=== PATIENT | male | born 1970 | race Caucasian/White ===

== ENCOUNTER 2016-12-06 14:46 | Emergency (ER) | payer OTHER ==
[2016-12-06 14:50] VITALS: PULSE 64; RESP 18; TEMP 98.6
[2016-12-06] MEDS ORDERED: KETOROLAC TROMETHAMINE 30 MG/ML SOL IM ONE (15:22)
[2016-12-06] MEDS ORDERED: CYCLOBENZAPRINE 10 MG TAB PO ONE (15:22)
[2016-12-06] MEDS ORDERED: APAP/OXYCODONE 325/5 TAB PO ONE (15:22)
[2016-12-06] MEDS ORDERED: APAP/OXYCODONE 325/5 TAB ONE (15:25)
[2016-12-06] MEDS ORDERED: CYCLOBENZAPRINE 10 MG TAB ONE (15:25)
[2016-12-06] MEDS ORDERED: KETOROLAC TROMETHAMINE 30 MG/ML SOL ONE (15:25)
[2016-12-06 16:10] VITALS: BP 113/90; O2SAT 93
== END 2016-12-06 16:25 | disposition home or self-care (01) ==
LOC: ED 14:46
DX: M54.9 Dorsalgia, unspecified (principal); M48.00 Spinal stenosis, site unspecified
CPT/HCPCS: 99283 ×2; J1885; 96372

== ENCOUNTER 2017-06-22 20:31 | Emergency (ER) | payer OTHER ==
[2017-06-22 20:49] VITALS: RESP 22
[2017-06-22 21:33] VITALS: BP 145/96; PULSE 74; TEMP 98; O2SAT 98
== END 2017-06-22 21:32 | disposition home or self-care (01) | DRG 605 ==
LOC: ED 20:31
DX: S60.032A Contusion of left middle finger without damage to nail, initial encounter (principal); W31.89XA Contact with other specified machinery, initial encounter
CPT/HCPCS: 73140; 99282

== ENCOUNTER 2018-05-05 19:52 | Emergency (ER) | payer OTHER ==
[2018-05-05] MEDS ORDERED: HYDROMORPHONE HYDROCHLORIDE 2 MG TAB PO ONE ×2 (20:32→20:35)
[2018-05-05] MEDS ORDERED: CYCLOBENZAPRINE 10 MG TAB PO ONE (22:05)
[2018-05-05] MEDS ORDERED: HYDROMORPHONE HCL 2 MG/ML SOL IM ONE (22:05)
[2018-05-05] MEDS ORDERED: HYDROMORPHONE 1 MG/ML SYRINGE ONE (22:06)
[2018-05-05] MEDS ORDERED: CYCLOBENZAPRINE 10 MG TAB ONE (22:06)
[2018-05-05 22:36] VITALS: TEMP 98.4
[2018-05-05 22:46] VITALS: RESP 20
[2018-05-05 22:52] VITALS: O2SAT 99
[2018-05-05 22:53] VITALS: BP 152/102; PULSE 62
== END 2018-05-05 23:02 | disposition home or self-care (01) ==
LOC: ED 19:52
DX: G89.29 Other chronic pain (principal); M54.5 Low back pain; E11.40 Type 2 diabetes mellitus with diabetic neuropathy, unspecified; Z79.4 Long term (current) use of insulin; Z79.84 Long term (current) use of oral hypoglycemic drugs
CPT/HCPCS: 94762; 96372; 99284; A9270-GY; J1170

== ENCOUNTER 2018-06-21 20:00 | Emergency (ER) | payer OTHER ==
[2018-06-21] MEDS ORDERED: ASPIRIN 81 MG CHEWABLE CTB PO STA (20:14)
[2018-06-21] MEDS ORDERED: NITROGLYCERIN 0.4 MG TAB SL PRN (20:14)
[2018-06-21] MEDS ORDERED: ONDANSETRON HCL 4 MG/2 ML SOL IV ONE (20:15)
[2018-06-21 20:20] LABS: BASOPHILS % (AUTO) 1 % (0-3); EOSINOPHILS % (AUTO) 3 % (0-9); HEMATOCRIT 45 % (39-53); HEMOGLOBIN 14.7 gm/dl (13.5-17.7); LYMPHOCYTES % (AUTO) 31.9 % (10-50); MEAN CORPUSCULAR HEMOGLOBIN 27.9 pg (27.0-32.0); MEAN CORPUSCULAR HGB CONC 32.6 gm/dl (32.0-36.0); MEAN CORPUSCULAR VOLUME 86 fL (80-100); MONOCYTES % (AUTO) 8.2 % (0-12); NEUTROPHILS % (AUTO) 56.4 % (37-80)
[2018-06-21 20:22] VITALS: TEMP 98.5
[2018-06-21] MEDS ORDERED: ASPIRIN 81 MG CHEWABLE CTB ONE (20:26)
[2018-06-21] MEDS: SODIUM CHLORIDE 0.9% FLUSH 10 ML SOL IV PRN ×2 (20:27→20:33)
[2018-06-21] MEDS ORDERED: ONDANSETRON HCL 4 MG/2 ML SOL ONE (20:28)
[2018-06-21 20:31] LABS: BLOOD UREA NITROGEN 15 mg/dl (7-18); CALCIUM 8.4 mg/dl (8.5-10.1); CARBON DIOXIDE 28.8 mEq/L (21-32); CHLORIDE 97 mMol/L (98-107); CREATINE KINASE 170 U/L (39-308); CREATININE 1.01 mg/dl (0.80-1.30); GLUCOSE 132 mg/dl (74-106); INR 0.98 (0.86-1.12); POTASSIUM 3.6 mMol/L (3.5-5.1); SODIUM 135 mMol/L (136-145); TROP I < 0.017 ng/ml (0.000-0.056)
[2018-06-21 20:35] VITALS: RESP 16
[2018-06-21 22:09] VITALS: BP 153/100; PULSE 59; O2SAT 95
== END 2018-06-21 22:23 | disposition home or self-care (01) ==
LOC: ED 20:00 → SUPCPDRO 20:00 → ED 22:23
DX: R11.0 Nausea (principal)
CPT/HCPCS: 36415; 71045; 80048; 82550; 84484; 85025; 85610; 85730; 93005; 96374; 99284; 99285; J2405

== ENCOUNTER 2018-08-02 20:10 | Emergency (ER) | payer OTHER ==
[2018-08-02] MEDS: SODIUM CHLORIDE 0.9% FLUSH 10 ML SOL IV PRN ×2 (20:15→20:39)
[2018-08-02 20:28] LABS: BASOPHILS % (AUTO) 1 % (0-3); EOSINOPHILS % (AUTO) 2 % (0-9); HEMATOCRIT 42 % (39-53); HEMOGLOBIN 13.9 gm/dl (13.5-17.7); LYMPHOCYTES % (AUTO) 25.8 % (10-50); MEAN CORPUSCULAR HEMOGLOBIN 28.8 pg (27.0-32.0); MEAN CORPUSCULAR HGB CONC 33.4 gm/dl (32.0-36.0); MEAN CORPUSCULAR VOLUME 86 fL (80-100); MONOCYTES % (AUTO) 8.3 % (0-12); NEUTROPHILS % (AUTO) 62.9 % (37-80)
[2018-08-02] MEDS ORDERED: NITROGLYCERIN 0.4 MG TAB SL ONE (20:29)
[2018-08-02] MEDS ORDERED: MORPHINE SULFATE 10 MG/ML SOL ONE (20:29)
[2018-08-02] MEDS ORDERED: MORPHINE SULFATE 10 MG/ML SOL IV ONE (20:34)
[2018-08-02] MEDS ORDERED: ONDANSETRON HCL 4 MG/2 ML SOL ONE (20:36)
[2018-08-02] MEDS ORDERED: ONDANSETRON HCL 4 MG/2 ML SOL IV ONE (20:37)
[2018-08-02] MEDS ORDERED: NITROGLYCERIN 0.4 MG TAB SL PRN (20:39)
[2018-08-02 20:45] LABS: BLOOD UREA NITROGEN 15 mg/dl (7-18); CALCIUM 8.5 mg/dl (8.5-10.1); CARBON DIOXIDE 22.5 mEq/L (21-32); CHLORIDE 101 mMol/L (98-107); CREATINE KINASE 139 U/L (39-308); CREATININE 0.91 mg/dl (0.80-1.30); GLUCOSE 164 mg/dl (74-106); POTASSIUM 3.8 mMol/L (3.5-5.1); SODIUM 137 mMol/L (136-145); TROP I < 0.017 ng/ml (0.000-0.056)
[2018-08-02] MEDS ORDERED: SODIUM CHLORIDE 0.9% 1000ML 1,000 ML IV ONE (20:45)
[2018-08-03 01:32] VITALS: RESP 18
[2018-08-03 03:55] VITALS: BP 165/95; PULSE 62; TEMP 98.2; O2SAT 99
== END 2018-08-03 03:25 | disposition home or self-care (01) ==
LOC: ED 20:10
DX: I20.0 Unstable angina (principal); I10 Essential (primary) hypertension; F17.200 Nicotine dependence, unspecified, uncomplicated; M54.5 Low back pain; E11.8 Type 2 diabetes mellitus with unspecified complications; Z79.4 Long term (current) use of insulin
CPT/HCPCS: 36415; 71045; 80048; 82550; 82962; 83880; 84484; 85025; 85610; 85730; 93005; 96365; 96366; 96374; 96375; 99284; 99285; J2270; J2405; A9270-GY

== ENCOUNTER 2018-08-06 08:32 | Day surgery (SDC) | payer OTHER ==
[2018-08-06] MEDS ORDERED: BUPIVACAINE HCL 0.25% MPF 30 ML SOL INFIL ONE (09:20)
[2018-08-06] MEDS: DEXAMETHASONE SOD PHOS PF 10 MG/ML SOL IJ ONE ×3 (09:27→09:35)
[2018-08-06 09:51] VITALS: PULSE 60; RESP 20; TEMP 99.1; O2SAT 95
[2018-08-06 09:53] VITALS: BP 157/98
== END 2018-08-06 10:14 | disposition home or self-care (01) ==
LOC: SURG 08:32
PROVIDERS: ATTEND Nurse Anesthetist, Certified Registered
DX: M51.17 Intervertebral disc disorders with radiculopathy, lumbosacral region (principal); E11.9 Type 2 diabetes mellitus without complications
CPT/HCPCS: 82962; J1100

== ENCOUNTER 2018-08-12 18:26 | Emergency (ER) | payer OTHER ==
[2018-08-12] MEDS ORDERED: ASPIRIN 81 MG CHEWABLE CTB PO ONE (18:53)
[2018-08-12 19:04] LABS: BASOPHILS % (AUTO) 1 % (0-3); EOSINOPHILS % (AUTO) 2 % (0-9); HEMATOCRIT 42 % (39-53); HEMOGLOBIN 13.6 gm/dl (13.5-17.7); LYMPHOCYTES % (AUTO) 29.1 % (10-50); MEAN CORPUSCULAR HEMOGLOBIN 28.1 pg (27.0-32.0); MEAN CORPUSCULAR HGB CONC 32.1 gm/dl (32.0-36.0); MEAN CORPUSCULAR VOLUME 88 fL (80-100)
[2018-08-12] MEDS ORDERED: ASPIRIN 81 MG CHEWABLE CTB ONE (19:07)
[2018-08-12] MEDS ORDERED: NITROGLYCERIN 0.4 MG TAB SL ONE (19:07)
[2018-08-12] MEDS ORDERED: NITROGLYCERIN 0.4 MG TAB SL PRN (19:10)
[2018-08-12 19:19] VITALS: RESP 20
[2018-08-12 19:23] LABS: CALCIUM 8.6 mg/dl (8.5-10.1); CARBON DIOXIDE 29.7 mEq/L (21-32); CHLORIDE 99 mMol/L (98-107); CREATININE 0.95 mg/dl (0.80-1.30); GLUCOSE 117 mg/dl (74-106); POTASSIUM 3.9 mMol/L (3.5-5.1); SODIUM 136 mMol/L (136-145); TROP I < 0.017 ng/ml (0.000-0.056)
[2018-08-12 20:03] LABS: BLOOD UREA NITROGEN 13 mg/dl (7-18)
[2018-08-12 20:20] VITALS: BP 144/86; PULSE 67; TEMP 97.4; O2SAT 99
== END 2018-08-12 20:20 | disposition home or self-care (01) ==
LOC: ED 18:26
DX: R07.9 Chest pain, unspecified (principal)
CPT/HCPCS: 80048; 84484; 85025; 93005; 99283; 99284; A6232; A9270-GY

== ENCOUNTER 2018-08-22 20:17 | Emergency (ER) | payer OTHER ==
[2018-08-22 21:04] LABS: ALBUMIN 3.3 gm/dl (3.4-5.0); ALKALINE PHOSPHATASE 77 IU/L (46-116); ALT 22 IU/L (14-63); AST 14 IU/L (15-37); BILIRUBIN,TOTAL 0.3 mg/dl (0.2-1.0); BLOOD UREA NITROGEN 18 mg/dl (7-18); CALCIUM 8.6 mg/dl (8.5-10.1); CARBON DIOXIDE 25.9 mEq/L (21-32); CHLORIDE 101 mMol/L (98-107); CREATININE 0.91 mg/dl (0.80-1.30); GLUCOSE 101 mg/dl (74-106); POTASSIUM 3.7 mMol/L (3.5-5.1); SODIUM 137 mMol/L (136-145); TROP I < 0.017 ng/ml (0.000-0.056)
[2018-08-22 21:43] VITALS: TEMP 97.9
[2018-08-22 21:52] VITALS: BP 139/94; PULSE 60; RESP 15; O2SAT 99
== END 2018-08-22 22:36 | disposition short-term general hospital (02) ==
LOC: ED 20:17
DX: I20.0 Unstable angina (principal)
CPT/HCPCS: 80053; 83880; 84484; 85378; 93005; 99285; 99291

== ENCOUNTER 2018-09-26 09:16 | Day surgery (SDC) | payer OTHER ==
[2018-09-26] MEDS ORDERED: BUPIVACAINE HCL 0.25% MPF 30 ML SOL INFIL ONE (10:07)
[2018-09-26] MEDS: DEXAMETHASONE SOD PHOS PF 10 MG/ML SOL IJ ONE ×4 (10:12→10:30)
[2018-09-26 10:41] VITALS: PULSE 59; RESP 12; TEMP 98.3; O2SAT 95
[2018-09-26 10:48] VITALS: BP 140/91
== END 2018-09-26 11:30 | disposition home or self-care (01) ==
LOC: SURG 09:16
PROVIDERS: ATTEND Nurse Anesthetist, Certified Registered
DX: E11.9 Type 2 diabetes mellitus without complications (principal); M51.17 Intervertebral disc disorders with radiculopathy, lumbosacral region
CPT/HCPCS: J1100

== ENCOUNTER 2018-11-17 20:32 | Emergency (ER) | payer BC ==
[2018-11-17 21:01] VITALS: TEMP 96.5; O2SAT 96
[2018-11-17] MEDS ORDERED: APAP/HYDROCODONE 1 EACH TABLET PO ONE (21:33)
[2018-11-17] MEDS ORDERED: APAP/HYDROCODONE 1 EACH TABLET ONE (21:43)
[2018-11-17 21:54] VITALS: BP 160/100; PULSE 65; RESP 18
== END 2018-11-17 21:52 | disposition home or self-care (01) ==
LOC: ED 20:32
DX: M54.5 Low back pain (principal); R53.1 Weakness; M79.605 Pain in left leg; M79.604 Pain in right leg
CPT/HCPCS: 99282; A9270-GY

== ENCOUNTER 2019-01-23 16:36 | Emergency (ER) | payer BC ==
[2019-01-23] MEDS: TETRACAINE HCL 0.5 % 1 DROP SOL RIGHTEYE ONE (17:00)
[2019-01-23] MEDS ORDERED: TETRACAINE HCL 0.5 % 1 DROP SOL ONE (17:03)
[2019-01-23 17:32] VITALS: PULSE 62; RESP 18; TEMP 96.9
[2019-01-23 17:48] VITALS: BP 120/89; O2SAT 99
== END 2019-01-23 17:45 | disposition home or self-care (01) ==
LOC: ED 16:36
DX: S05.01XA Injury of conjunctiva and corneal abrasion without foreign body, right eye, initial encounter (principal)
CPT/HCPCS: 99282; A9270-GY

== ENCOUNTER 2019-03-12 12:30 | Day surgery (SDC) | payer BC ==
[2019-03-12 13:03] VITALS: RESP 16
[2019-03-12] MEDS ORDERED: BUPIVACAINE HCL 0.25% MPF 30 ML SOL INFIL ONE (13:23)
[2019-03-12] MEDS: DEXAMETHASONE SOD PHOS PF 10 MG/ML SOL IJ ONE ×2 (13:33→13:36)
[2019-03-12 13:50] VITALS: BP 139/80; PULSE 58; TEMP 98.1; O2SAT 93
== END 2019-03-12 14:05 | disposition home or self-care (01) ==
LOC: SURG 12:30
PROVIDERS: ATTEND Nurse Anesthetist, Certified Registered
DX: M99.53 Intervertebral disc stenosis of neural canal of lumbar region (principal); E11.9 Type 2 diabetes mellitus without complications
CPT/HCPCS: 82962; J1100

== ENCOUNTER 2019-03-21 18:01 | Emergency (ER) | payer BC ==
[2019-03-21 18:25] LABS: BASOPHILS % (AUTO) 1 % (0-3); EOSINOPHILS % (AUTO) 1 % (0-9); HEMATOCRIT 42 % (39-53); HEMOGLOBIN 14.4 gm/dl (13.5-17.7); INR 1.05 (0.86-1.12); LYMPHOCYTES % (AUTO) 16.3 % (10-50); MEAN CORPUSCULAR HEMOGLOBIN 28.7 pg (27.0-32.0); MEAN CORPUSCULAR VOLUME 85 fL (80-100); MONOCYTES % (AUTO) 8.3 % (0-12); NEUTROPHILS % (AUTO) 73.4 % (37-80)
[2019-03-21 18:30] LABS: BLOOD UREA NITROGEN 18 mg/dl (7-18); CALCIUM 8.4 mg/dl (8.5-10.1); CHLORIDE 97 mMol/L (98-107); CREATININE 1.23 mg/dl (0.80-1.30); GLUCOSE 241 mg/dl (74-106); POTASSIUM 3.7 mMol/L (3.5-5.1); TROP I < 0.017 ng/ml (0.000-0.056)
[2019-03-21 18:35] LABS: CARBON DIOXIDE 26.4 mEq/L (21-32)
[2019-03-21 18:36] LABS: SODIUM 133 mMol/L (136-145)
[2019-03-21 18:58] VITALS: TEMP 98
[2019-03-21 19:22] VITALS: O2SAT 96
[2019-03-21 22:45] VITALS: BP 101/63; PULSE 60; RESP 19
== END 2019-03-21 23:08 | disposition home or self-care (01) ==
LOC: SUPCPDRO 18:01 → ED 18:01
DX: R07.9 Chest pain, unspecified (principal); E11.9 Type 2 diabetes mellitus without complications; R42 Dizziness and giddiness; M25.512 Pain in left shoulder
CPT/HCPCS: 36415; 71045; 80048; 82962; 84484; 85025; 85610; 85730; 93005; 99285; 99291

== ENCOUNTER 2019-04-04 17:12 | Emergency (ER) | payer BC, OTHER ==
[2019-04-04] MEDS ORDERED: ASPIRIN 81 MG CHEWABLE CTB ONE (17:16)
[2019-04-04] MEDS ORDERED: NITROGLYCERIN 0.4 MG TAB SL ONE (17:16)
[2019-04-04] MEDS ORDERED: ASPIRIN 81 MG CHEWABLE CTB PO ONE (17:36)
[2019-04-04 17:43] LABS: BASOPHILS % (AUTO) 1 % (0-3); EOSINOPHILS % (AUTO) 2 % (0-9); HEMATOCRIT 44 % (39-53); HEMOGLOBIN 14.4 gm/dl (13.5-17.7); LYMPHOCYTES % (AUTO) 27.8 % (10-50); MEAN CORPUSCULAR HEMOGLOBIN 28.2 pg (27.0-32.0); MEAN CORPUSCULAR HGB CONC 32.8 gm/dl (32.0-36.0); MEAN CORPUSCULAR VOLUME 86 fL (80-100)
[2019-04-04] MEDS ORDERED: SODIUM CHLORIDE 0.9% 1000ML 1,000 ML IV SCH (17:45)
[2019-04-04] MEDS: NITROGLYCERIN 0.4 MG TAB SL PRN ×2 (17:49→18:12)
[2019-04-04 17:55] VITALS: TEMP 97.5
[2019-04-04 17:57] LABS: ALBUMIN 3.5 gm/dl (3.4-5.0); ALKALINE PHOSPHATASE 77 IU/L (46-116); ALT 24 IU/L (14-63); AST 9 IU/L (15-37); BILIRUBIN,TOTAL 0.3 mg/dl (0.2-1.0); BLOOD UREA NITROGEN 19 mg/dl (7-18); CALCIUM 8.7 mg/dl (8.5-10.1); CARBON DIOXIDE 27.2 mEq/L (21-32); CHLORIDE 100 mMol/L (98-107); CREATININE 1.06 mg/dl (0.80-1.30); GLUCOSE 134 mg/dl (74-106); POTASSIUM 3.5 mMol/L (3.5-5.1); SODIUM 135 mMol/L (136-145); TOTAL PROTEIN 7.2 gm/dl (6.4-8.2); TROP I < 0.017 ng/ml (0.000-0.056)
[2019-04-04] MEDS ORDERED: SODIUM CHLORIDE 0.9% FLUSH 10 ML SOL IV PRN (18:07)
[2019-04-04 22:27] VITALS: BP 151/95; PULSE 70; RESP 23; O2SAT 96
== END 2019-04-04 22:04 | disposition short-term general hospital (02) ==
LOC: ED 17:12
DX: R79.1 Abnormal coagulation profile (principal); R07.9 Chest pain, unspecified; R91.1 Solitary pulmonary nodule; E11.9 Type 2 diabetes mellitus without complications; R42 Dizziness and giddiness; R61 Generalized hyperhidrosis
CPT/HCPCS: 36415; 71045; 71275; 80053; 84484; 85025; 85378; 85610; 85730; 93005; 96365; 96366; 99285; 99291; 99292; Q9967; A9270-GY

== ENCOUNTER 2019-04-10 21:47 | Emergency (ER) | payer OTHER ==
[2019-04-10] MEDS ORDERED: SODIUM CHLORIDE 0.9% FLUSH 10 ML SOL IV PRN (22:02)
[2019-04-10 22:12] LABS: BASOPHILS % (AUTO) 1 % (0-3); EOSINOPHILS % (AUTO) 1 % (0-9); HEMATOCRIT 40 % (39-53); HEMOGLOBIN 13.6 gm/dl (13.5-17.7); LYMPHOCYTES % (AUTO) 25.3 % (10-50); MEAN CORPUSCULAR HEMOGLOBIN 28.9 pg (27.0-32.0); MEAN CORPUSCULAR VOLUME 85 fL (80-100); MONOCYTES % (AUTO) 8.4 % (0-12); NEUTROPHILS % (AUTO) 64.3 % (37-80)
[2019-04-10 22:29] LABS: ALBUMIN 3.6 gm/dl (3.4-5.0); ALKALINE PHOSPHATASE 72 IU/L (46-116); ALT 23 IU/L (14-63); AST 8 IU/L (15-37); BILIRUBIN,TOTAL 0.3 mg/dl (0.2-1.0); BLOOD UREA NITROGEN 18 mg/dl (7-18); CALCIUM 8.5 mg/dl (8.5-10.1); CARBON DIOXIDE 26.3 mEq/L (21-32); CHLORIDE 100 mMol/L (98-107); CREATINE KINASE 107 U/L (39-308); CREATININE 1.08 mg/dl (0.80-1.30); GLUCOSE 149 mg/dl (74-106); POTASSIUM 3.3 mMol/L (3.5-5.1); SODIUM 134 mMol/L (136-145); TOTAL PROTEIN 7.3 gm/dl (6.4-8.2); TROP I < 0.017 ng/ml (0.000-0.056)
[2019-04-10 23:47] VITALS: TEMP 98.2; O2SAT 97
[2019-04-10 23:58] VITALS: BP 137/83; PULSE 62; RESP 18
== END 2019-04-11 00:09 | disposition home or self-care (01) ==
LOC: ED 21:47
DX: R07.89 Other chest pain (principal); M25.512 Pain in left shoulder; M25.511 Pain in right shoulder; E11.9 Type 2 diabetes mellitus without complications
CPT/HCPCS: 71045; 80053; 82550; 84484; 85025; 93005; 99284; 99285

== ENCOUNTER 2019-04-19 21:40 | Observation (INO) | payer BC, OTHER ==
[~2019-04-19 21:40] MED LIST: SODIUM CHLORIDE 0.9% FLUSH 10 ML SOL IV PRN
[2019-04-19 22:05] LABS: BASOPHILS % (AUTO) 1 % (0-3); EOSINOPHILS % (AUTO) 2 % (0-9); HEMATOCRIT 38 % (39-53); LYMPHOCYTES % (AUTO) 32.7 % (10-50); MEAN CORPUSCULAR HGB CONC 33.8 gm/dl (32.0-36.0); MEAN CORPUSCULAR VOLUME 86 fL (80-100); MONOCYTES % (AUTO) 12.1 % (0-12); NEUTROPHILS % (AUTO) 52.6 % (37-80)
[2019-04-19 22:20] LABS: ALBUMIN 3.2 gm/dl (3.4-5.0); ALKALINE PHOSPHATASE 66 IU/L (46-116); ALT 22 IU/L (14-63); AST 8 IU/L (15-37); BILIRUBIN,TOTAL 0.3 mg/dl (0.2-1.0); BLOOD UREA NITROGEN 17 mg/dl (7-18); CALCIUM 8.3 mg/dl (8.5-10.1); CARBON DIOXIDE 30.8 mEq/L (21-32); CHLORIDE 98 mMol/L (98-107); CREATININE 0.99 mg/dl (0.80-1.30); GLUCOSE 186 mg/dl (74-106); POTASSIUM 3.6 mMol/L (3.5-5.1); SODIUM 134 mMol/L (136-145); TOTAL PROTEIN 6.8 gm/dl (6.4-8.2); TROP I < 0.017 ng/ml (0.000-0.056)
[2019-04-19] MEDS ORDERED: ASPIRIN 81 MG CHEWABLE CTB PO ONE (22:20)
[2019-04-19] MEDS ORDERED: ASPIRIN 81 MG CHEWABLE CTB ONE (22:23)
[2019-04-19] MEDS ORDERED: TIZANIDINE HCL 4 MG PO PRN (23:30)
[2019-04-19] MEDS ORDERED: NITROGLYCERIN 0.4 MG TAB SL PRN (23:30)
[2019-04-19 23:32] VITALS: TEMP 97.7
[2019-04-20] MEDS ORDERED: ARIPIPRAZOLE 20 MG TAB PO SCH (01:00)
[2019-04-20] MEDS ORDERED: ARIPIPRAZOLE 5 MG TAB PO SCH (01:00)
[2019-04-20] MEDS ORDERED: ATORVASTATIN 10 MG TAB PO SCH (01:00)
[2019-04-20] MEDS ORDERED: PROPRANOLOL HCL 40 MG TAB PO SCH (01:00)
[2019-04-20] MEDS ORDERED: TRAZODONE HYDROCHLORIDE 50 MG TAB PO SCH (01:00)
[2019-04-20] MEDS ORDERED: INSULIN GLARGINE, RECOMBINAN 100 U/ML SOL SC SCH (01:00)
[2019-04-20] MEDS ORDERED: OMEPRAZOLE 40 MG ECC PO SCH (07:00)
[2019-04-20 07:21] LABS: BASOPHILS % (AUTO) 1 % (0-3); EOSINOPHILS % (AUTO) 2 % (0-9); HEMATOCRIT 39 % (39-53); HEMOGLOBIN 13.2 gm/dl (13.5-17.7); MEAN CORPUSCULAR HEMOGLOBIN 29.1 pg (27.0-32.0); MEAN CORPUSCULAR HGB CONC 34.2 gm/dl (32.0-36.0); MEAN CORPUSCULAR VOLUME 85 fL (80-100); MONOCYTES % (AUTO) 10.8 % (0-12); NEUTROPHILS % (AUTO) 58.2 % (37-80)
[2019-04-20 07:38] LABS: BLOOD UREA NITROGEN 17 mg/dl (7-18); CALCIUM 8.4 mg/dl (8.5-10.1); CARBON DIOXIDE 31.6 mEq/L (21-32); CHLORIDE 103 mMol/L (98-107); CREATININE 0.92 mg/dl (0.80-1.30); GLUCOSE 102 mg/dl (74-106); POTASSIUM 3.9 mMol/L (3.5-5.1); SODIUM 138 mMol/L (136-145); TROP I < 0.017 ng/ml (0.000-0.056)
[2019-04-20 08:41] VITALS: BP 142/92; PULSE 54; RESP 20; O2SAT 95
[2019-04-20] MEDS ORDERED: ASPIRIN EC 81 MG PO SCH (09:00)
[2019-04-20] MEDS ORDERED: METFORMIN HYDROCHLORIDE 500 MG TAB PO SCH (09:00)
[2019-04-20] MEDS ORDERED: LISINOPRIL 20 MG TAB PO SCH (09:00)
[2019-04-20] MEDS ORDERED: VENLAFAXINE HCL 150 MG CER PO SCH (09:00)
== END 2019-04-20 10:15 | disposition home or self-care (01) ==
LOC: ED 21:40 → ACUTE CARE 22:46
PROVIDERS: ADMIT Family Medicine; ATTEND Family Medicine
DX: R07.9 Chest pain, unspecified (principal); E11.9 Type 2 diabetes mellitus without complications; I20.0 Unstable angina
CPT/HCPCS: 36415; 71046; 80048; 80053; 82962; 83880; 84484; 85025; 93005; 93012; 99217; 99219; 99285; J1817; A9270-GY

== ENCOUNTER 2019-05-20 08:13 | Day surgery (SDC) | payer BC ==
[2019-05-20] MEDS ORDERED: BUPIVACAINE HCL 0.25% MPF 30 ML SOL INFIL ONE (08:50)
[2019-05-20] MEDS: DEXAMETHASONE SOD PHOS PF 10 MG/ML SOL IJ ONE ×2 (09:01→09:07)
[2019-05-20 09:18] VITALS: BP 128/77; PULSE 55; RESP 18; TEMP 97.4; O2SAT 97
== END 2019-05-20 09:31 | disposition home or self-care (01) ==
LOC: SURG 08:13
PROVIDERS: ATTEND Nurse Anesthetist, Certified Registered
DX: M51.17 Intervertebral disc disorders with radiculopathy, lumbosacral region (principal); E11.9 Type 2 diabetes mellitus without complications
CPT/HCPCS: 82962; J1100